=== PATIENT | female | born 2000 ===

== ENCOUNTER 2020-05-01 13:08 | Emergency (ER) | payer OTHER ==
[~2020-05-01] VITALS: Ht 170.2 cm; Wt 77.1 kg
[2020-05-01] MEDS ORDERED: EUTHYROX50 MCG PO (13:38)
== END 2020-05-01 14:56 | disposition home or self-care (01) ==
LOC: ER 13:08
DX: M25.561 Pain in right knee (principal); F17.200 Nicotine dependence, unspecified, uncomplicated; Z79.899 Other long term (current) drug therapy
CPT/HCPCS: 73564; 99283-25